=== PATIENT | female | born 1990 | race Caucasian/White ===

== ENCOUNTER 2017-01-19 01:38 | Emergency (ER) | payer BC ==
--- NOTE | ~2017-01-19 | ER ---
PATIENT'S NAME: SADIA ROBISON [facility] AGE: 26 Y [address] ROOM: [place] [address] LOCATION: [facility] ADMIT DATE: 01/19/2017 ER/Outpatient Report DISCHARGE DATE: 01/19/2017 FAMILY PHYSICIAN: , Unknown ATTENDING PHYSICIAN: Nathan Moreno Time of Arrival: 0136 hours. Time of Evaluation: 0147 hours. CHIEF COMPLAINT: Constipation. HISTORY OF PRESENT ILLNESS: The patient is a 26-year-old female, who presents to the emergency department today with a chief complaint of constipation. She reports she had diarrhea on Sunday. She took multiple doses of diarrheal medicine at that time. She has not had a bowel movement since Sunday. She denies any fevers or chills. No urinary frequency, urgency, or painful urination. No nausea or vomiting. She reports gas pain, feels bloated, crampy type pain. Maximum was 10/10 in severity. It is mild in severity currently. PAST MEDICAL HISTORY: 1. 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 2. Anxiety. 3. Depression. 4. Bipolar. 5. Hearing loss. PAST SURGICAL HISTORY: Fistula, , PDA closure, D and C, elective . SOCIAL HISTORY: The patient lives in [place]. Smokes 8 cigarettes per day for 3 years. Denies any alcohol or illicit drug use. ALLERGIES: TO PENICILLIN, AMOXICILLIN, HYDROCODONE, AND LEXAPRO. MEDICATIONS: Please see list. PRIMARY CARE DOCTOR: PATIENT'S NAME: SADIA ROBISON [facility] AGE: 26 Y [address] ROOM: [place], [place] [address] LOCATION: [facility] ADMIT DATE: 01/19/2017 ER/Outpatient Report DISCHARGE DATE: 01/19/2017 FAMILY PHYSICIAN: Physician, Unknown ATTENDING PHYSICIAN: Nathan Moreno None. REVIEW OF SYSTEMS: All systems are reviewed by myself and negative with the exception of those discussed in the HPI and past medical history. PHYSICAL EXAMINATION: VITAL SIGNS: Weight 61.4 kg, blood pressure 133/87, pulse 66, respiratory rate 16, temperature 98.7, oxygen saturation 100% on room air. GENERAL: The patient is a 26-year-old female, appears stated age, in no acute distress. HEENT: Head is normocephalic and atraumatic. Pupils are equal, round, and reactive to light and accommodation. Extraocular motions are intact. Nares are patent bilaterally. TMs are clear. Oropharynx is clear. NECK: Supple. There is no nuchal rigidity. CARDIOVASCULAR: Regular rate and rhythm. No murmurs, rubs, or gallops. LUNGS: Clear to auscultation bilaterally. No wheezes, rales, or rhonchi. ABDOMEN: Soft, nontender, and nondistended. No rebound, rigidity, or guarding. Positive bowel sounds. MUSCULOSKELETAL: The patient moves all 4 extremities. 5/5 muscle strength. SKIN: Warm and dry. There are no rashes or lesions noted. LABS AND X-RAYS: None. IMPRESSION: 1. Constipation. 2. Initial visit. EMERGENCY DEPARTMENT COURSE: The patient was brought back to the examination room. Seen and evaluated by myself. History and physical performed as described above. The patient's abdominal exam is unremarkable. She has nonsurgical abdominal exam at this time. She does have good bowel sounds. It sounds like she just has constipation. She certainly does have a nonsurgical abdominal exam at this time. I have discussed with her the medications that she is taking. We will write her for GoLYTELY. She is to take this until she has a loose stool. I have recommended using an enema as well as a stool softener as well. I have discussed following up with the primary care doctor. We have given her a business card for [facility]. I have asked she follows up with Dr. Epps with her dialysis as scheduled. I have discussed return-to- care instructions, including worsening abdominal pain, or any other concerns to return to the emergency department as soon as possible. The patient is agreeable without further questions at this time. PATIENT'S NAME: SADIA ROBISON [facility] AGE: 26 Y [address] ROOM: [place], [place] [address] LOCATION: ED ADMIT DATE: 01/19/2017 ER/Outpatient Report DISCHARGE DATE: 01/19/2017 FAMILY PHYSICIAN: Physician, Unknown ATTENDING PHYSICIAN: Nathan Moreno DISPOSITION: The patient discharged home in good condition. DO GINA MILLIGAN/conchita /[id number] d: 01/19/17 0304 t: 01/22/17 0604, OUTPATIENT REPORT
[~2017-01-19 01:38] MED LIST: BISMUTH262 M1 PO; HEPARIN5000 UNIT/ DIALYSIS; ISORDIL10 MG PO; LOPERAMIDE2 M1 PO; MELATONIN5 MG PO; MIDOL CAPLET1 EAC1 PO; PROAIR HFA8.5 GM INH; PROTONIX40 MG PO; ROCALTROL0.25 MCG PO; TUMS REGULAR ST1 TAB PO; [UNRECOGNIZED DRUG - OTHER] PO
== END 2017-01-19 02:06 | disposition disaster alternative care site (69) ==
LOC: GMED 01:38
DX: K59.00 Constipation, unspecified (principal); F31.9 Bipolar disorder, unspecified; F41.9 Anxiety disorder, unspecified; N18.6 End stage renal disease; F17.210 Nicotine dependence, cigarettes, uncomplicated; Z99.2 Dependence on renal dialysis; Z88.0 Allergy status to penicillin; Z88.1 Allergy status to other antibiotic agents; Z88.5 Allergy status to narcotic agent; Z88.8 Allergy status to other drugs, medicaments and biological substances; Z79.899 Other long term (current) drug therapy

== ENCOUNTER 2017-01-19 16:59 | Emergency (ER) | payer BC ==
--- NOTE | ~2017-01-19 | ER ---
PATIENT'S NAME: SADIA ROBISON [facility] AGE: 26 Y [address] ROOM: [place] [address] LOCATION: [facility] ADMIT DATE: 01/19/2017 ER/Outpatient Report DISCHARGE DATE: 01/19/2017 FAMILY PHYSICIAN: PHYSICIAN, NO ATTENDING PHYSICIAN: Ignacio Lange HISTORY OF PRESENT ILLNESS: This patient is a 26-year-old female who comes in with diarrhea and right lower abdominal pain. No nausea or vomiting. She was having diarrhea earlier this week and then took an antidiarrheal, then got constipated. Has not had a bowel movement for three or four days. Was given magnesium citrate earlier this morning and then developed diarrhea, so she came in with the diarrhea and some right lower quadrant abdominal pain. Initially, saw Dr. Lange. See Dr. Lange's dictation in regard to the chief complaint, history of the present illness, past medical history, physical exam, laboratory study results. Dr. Lange transferred the patient's care over to me at shift change and asked me to follow up with the remaining lab study results and CT scan of the abdomen and pelvis results, final diagnosis, and treatment plan. The patient does have end-stage renal failure, on hemodialysis. She has not done dialysis on Sunday or Sunday of this week. So, she has missed twice. She has a history of anxiety, depression, bipolar disorder. LABORATORY DATA: CMS was normal except for an elevated BUN of 51, elevated creatinine of 6.1, low GFR of 8. CRP was 0.60. Beta HCG quantitative was normal at 1.0. Urine showed 0 to 2 whites, 50 to 100 reds, 10 to 20 epithelial cells, few bacteria per high-powered field, negative nitrites. Clot tube was drawn. White count was 7000, 65 segs, 25 lymphs, 6 monos, 3 eos, 1 baso. Hemoglobin is 13.2 with hematocrit 40.3, platelet count 130,000. PTT was 29, protime is 9.9 with an INR 1.0. Lactate was 1.5. CT scan of the abdomen and pelvis with IV contrast shows two right hemorrhagic ovarian cysts, one measuring 5 cm and one measuring 3 cm. There is a small amount of free fluid in the pelvis, physiologic. No other abnormalities were noted on CT scan. CT scan was read by Radiology, see dictated transcribed report. IMPRESSION: 1. Diarrhea, most likely secondary to magnesium citrate that she took at 0230 hours this morning. 2. Right lower abdominal pain, etiology uncertain, but may be due to the two right ovarian hemorrhagic cysts. 3. End-stage renal failure, on hemodialysis on Sunday, Sunday, and Sunday. 4. Thrombocytopenia. 5. Microscopic hematuria, etiology uncertain. PATIENT'S NAME: SADIA ROBISON [facility] AGE: 26 Y [address] ROOM: [place] [address] LOCATION: [facility] ADMIT DATE: 01/19/2017 ER/Outpatient Report DISCHARGE DATE: 01/19/2017 FAMILY PHYSICIAN: , NO ATTENDING PHYSICIAN: Ignacio Lange PLAN: The patient dismissed home. Observation. Activity as tolerated. Continue present home medications and care. Good hydration. Diet as tolerated. Proceed with dialysis on Sunday as scheduled. Follow up with personal physician in 4 or 5 days or sooner if needed. Discussion ensued with the patient concerning my findings and recommendations, she understands. MD KALE COLON/modl /[id number] d: 01/19/17 2328 t: 01/20/17 0013, OUTPATIENT REPORT
--- NOTE | ~2017-01-19 | ER ---
PATIENT'S NAME: SADIA ROBISON [facility] AGE: 26 Y [address] ROOM: [place] [address] LOCATION: ED ADMIT DATE: 01/19/2017 ER/Outpatient Report DISCHARGE DATE: 01/19/2017 FAMILY PHYSICIAN: MATT WETZEL ATTENDING PHYSICIAN: Ignacio Lange CHIEF COMPLAINT: Abdominal pain and diarrhea. HISTORY OF PRESENT ILLNESS: The patient presents from home for evaluation of diarrhea and abdominal pain. She was here early this morning for same. She is a dialysis patient secondary to Alport syndrome. She does make urine and reports that she has been urinating some today as well. She did take the MiraLAX as prescribed early this morning and has had multiple bowel movements since. She states that she had been having diarrhea last weekend and at dialysis on Sunday was given 2 Imodium and since then she has not had any bowel movements until this afternoon. She states that her abdominal discomfort is worse today. She denies any other issues. No fevers, chills, dysuria, unusual vaginal discharge, or other concerns. She does report that she has had a tubal ligation. No other acute issues at this time. PAST MEDICAL HISTORY: Documented on the record and reviewed by me. SOCIAL HISTORY: Documented on the record and reviewed by me. MEDICATIONS: Documented on the record and reviewed by me. ALLERGIES: DOCUMENTED ON THE RECORD AND REVIEWED BY ME. REVIEW OF SYSTEMS: All systems were reviewed and negative except as noted in the HPI. PHYSICAL EXAMINATION: VITAL SIGNS: Blood pressure 153/89, pulse 75, respiratory rate is 16, temperature 97.8, SpO2 is 100% on room air. Pain is rated at 4/10. GENERAL: An age appropriate female, in no obvious pain or distress. Resting on the exam table. Playing on her phone. NEUROLOGIC: The patient is awake and alert. She is interactive and appropriate for age. No focal deficits or asymmetry appreciated on exam. HEENT: Normocephalic, atraumatic. The eyes are PERRL. The oropharynx is PATIENT'S NAME: SADIA ROBISON [facility] AGE: 26 Y [address] ROOM: [place] [address] LOCATION: [facility] ADMIT DATE: 01/19/2017 ER/Outpatient Report DISCHARGE DATE: 01/19/2017 FAMILY PHYSICIAN: PHYSICIAN, NO ATTENDING PHYSICIAN: Ignacio Lange. No erythema or exudates seen. NECK: Supple. Trachea is midline. HEART: Regular rate and rhythm with no murmurs. LUNGS: Clear to auscultation bilateral with no rhonchi, wheezes, or rales. ABDOMEN: Soft, but there was rebound tenderness most prominent in the right lower quadrant with tenderness at the McBurney's point. Negative Rovsing sign. Negative obturator and negative psoas sign. The abdominal exam did not have any appreciable masses. BACK: Nontender to palpation throughout. There is no CVA tenderness. EXTREMITIES: Warm and well perfused without appreciated edema. SKIN: Warm, dry, and intact. LABORATORY DATA AND X-RAYS: Urinalysis; 25 leukocytes, 100 protein, 50 glucose, 250 blood, with a micro of 0 to 2 wbc's, 50 to 100 rbc's, 10 to 20 epithelials, and few bacteria. CBC of WBC 7.0, hemoglobin 13.2, platelets of 130. INR is 1.0. Serum lactate is 1.5. CMS as well as a serum are pending. IMPRESSION: 1. Abdominal pain. 2. Diarrhea. 3. Dialysis dependent. EMERGENCY DEPARTMENT COURSE: The patient was evaluated as above. I was concerned about appendicitis in this patient as it appeared after review of the notes from earlier ER visit that her abdominal exam had indeed worsened. For that reason, I believe she warrants a CT scan with contrast. We explained the risks and benefits of that to the patient. I needed to hand this patient off due to shift change restrictions to Dr. Mace at 1800 hours. He will follow up the labs to ensure that the patient is not as ectopic is also on the differential. At that time, appropriate interventions will be undertaken. She did not require any pain medication while I was taking care of her in the emergency department. Please see Dr. Mace's dictation for completion of encounter. MD JOMAR MAYER/conchita /[id number] d: 01/20/17 0629 t: 01/22/17 1044, OUTPATIENT REPORT
[2017-01-19 17:41] LABS: BASOPHIL # 0.1 K/uL (0.0-0.2); EOSINOPHIL # 0.2 K/uL (0.0-0.5); EOSINOPHIL % 3.2 %; HEMATOCRIT 40.3 % (33.0-46.0); HEMOGLOBIN 13.2 g/dL (11.0-15.0); IMMATURE GRANULOCYTE % 0.1 %; LYMPHOCYTE # 1.7 K/uL (0.8-4.0); LYMPHOCYTE % 24.7 %; MCH 32.5 pg (27.0-34.0); MCHC 32.8 gm/dL (32.0-36.5); MCV 99.3 fl (83.0-98.0); MONOCYTE # 0.4 K/uL (0.0-1.0); MONOCYTE % 6.2 %; MPV 11.4 fl (9.4-12.4); NEUTROPHIL # (ANC) 4.5 K/uL (1.8-7.8); NEUTROPHIL % 64.8 %; NRBC % 0 /100WBC (0-0.00); PLATELET COUNT 130 K/uL (150-450); RBC 4.06 M/uL (3.50-5.00); RDW-CV 12.4 % (11.9-14.6)
[2017-01-19 17:49] LABS: PROTIME 9.9 SECONDS (9.6-11.1); PTT 29 SECONDS (25-32)
[2017-01-19 17:51] LABS: BILIRUBIN URINE NEGATIVE (NEGATIVE); BLOOD URINE 250 /UL (NEGATIVE); COLOR URINE YELLOW (YELLOW); GLUCOSE URINE 50 mg/dL (NEGATIVE); KETONE URINE NEGATIVE (NEGATIVE); LEUKOCYTES URINE 25 /UL (NEGATIVE); NITRITE URINE NEGATIVE (NEGATIVE); PROTEIN URINE 100 mg/dL (NEGATIVE); TURBIDITY URINE CLEAR (CLEAR); UROBILINOGEN URINE NORMAL (NORMAL)
[2017-01-19 18:00] LABS: BACTERIA URINE FEW (NEGATIVE); RBC URINE 50-100 #/HPF (NEGATIVE); WBC URINE 0-2 #/HPF (NEGATIVE)
[2017-01-19 18:02] LABS: ALBUMIN 4.1 gm/dL (3.5-5.0); ANION GAP 14.7 (10.0-19.0); CALCIUM 9.1 mg/dL (8.5-10.5); CREATININE 6.1 mg/dL (0.5-1.1); POTASSIUM 4.7 mMol/L (3.7-5.1); TOTAL BILIRUBIN 0.2 mg/dL (0.0-1.5); TOTAL PROTEIN 8.4 g/dL (6.0-8.4)
== END 2017-01-19 19:34 | disposition disaster alternative care site (69) ==
LOC: GMED 16:59
PROVIDERS: Emergency Medicine
DX: R19.7 Diarrhea, unspecified (principal); R10.31 Right lower quadrant pain; R31.29 Other microscopic hematuria; D69.6 Thrombocytopenia, unspecified; N18.6 End stage renal disease; F31.9 Bipolar disorder, unspecified; F41.9 Anxiety disorder, unspecified; Z99.2 Dependence on renal dialysis; Z88.0 Allergy status to penicillin; Z88.1 Allergy status to other antibiotic agents; Z88.5 Allergy status to narcotic agent; Z91.040 Latex allergy status; Z79.899 Other long term (current) drug therapy
CPT/HCPCS: Q9967

== ENCOUNTER 2017-01-21 14:16 | Emergency (ER) | payer BC ==
--- NOTE | ~2017-01-21 | ER ---
PATIENT'S NAME: SADIA ROBISON [facility] AGE: 26 Y [address] ROOM: [place] [address] LOCATION: ED ADMIT DATE: 01/21/2017 ER/Outpatient Report DISCHARGE DATE: 01/21/2017 FAMILY PHYSICIAN: PHYSICIAN, NO ATTENDING PHYSICIAN: Ignacio Lange Time Seen: Seen at 1430 hours. CHIEF COMPLAINT: Sore throat. HISTORY OF PRESENT ILLNESS: The patient is a 26-year-old, dialysis patient presents with a sore throat. It started today. She denies any fever, chills, postnasal drainage. ALLERGIES: LEXAPRO, PENICILLIN, AND HYDROCODONE. CURRENT MEDICATIONS: See copied list which was reviewed. MEDICAL HISTORY: Includes chronic kidney disease requiring dialysis. PAST SURGICAL HISTORY: Surgeries include port. She has had a previous graft, tubal ligation. SOCIAL HISTORY: Smoker. A 3rd of a pack a day. REVIEW OF SYSTEMS: GENERAL: Today, no fevers or chills. HEAD/EENT: Sore throat. No postnasal drainage. RESPIRATORY: No cough or wheezing. OBJECTIVE FINDINGS: VITAL SIGNS: Temperature is 97.8, her respiratory rate 16, pulse 74, O2 saturation 98%. GENERAL APPEARANCE: Nontoxic-appearing. HEENT: TMs appeared normal. Throat: Tonsils appear slightly large, slightly red. There is no exudate. NECK: She had slightly enlarged anterior nodes, but did not appear tender. SKIN: No presence of any erythematous rash. LABORATORY DATA: PATIENT'S NAME: SADIA ROBISON [facility] AGE: 26 Y [address] ROOM: [place] [address] LOCATION: ED ADMIT DATE: 01/21/2017 ER/Outpatient Report DISCHARGE DATE: 01/21/2017 FAMILY PHYSICIAN: PHYSICIAN, NO ATTENDING PHYSICIAN: Ignacio Lange Rapid strep screen was negative. ASSESSMENT: Pharyngitis, probable viral. PLAN: Recommend the use of saline gargles, [id number] lozenges or spray. Follow up if she develops a fever, or concerns. NICOLÁS ELENA FOR MD EVE MAYERJ/modl /[id number] d: 01/21/17 2259 t: 02/13/17 0603, OUTPATIENT REPORT
== END 2017-01-21 15:10 | disposition disaster alternative care site (69) ==
LOC: GMED 14:16
DX: J02.9 Acute pharyngitis, unspecified (principal); N18.6 End stage renal disease; F17.210 Nicotine dependence, cigarettes, uncomplicated; Z99.2 Dependence on renal dialysis; Z88.0 Allergy status to penicillin; Z88.8 Allergy status to other drugs, medicaments and biological substances

== ENCOUNTER 2017-02-09 21:01 | Emergency (ER) | payer BC ==
--- NOTE | ~2017-02-09 | ER ---
PATIENT'S NAME: SADIA ROBISON [facility] AGE: 26 Y [address] ROOM: [place] [address] LOCATION: [facility] ADMIT DATE: 02/09/2017 ER/Outpatient Report DISCHARGE DATE: 02/09/2017 FAMILY PHYSICIAN: Physician, Unknown ATTENDING PHYSICIAN: Ignacio Lange Time of Arrival: 2014 hours. Time of Exam: 2015 hours. CHIEF COMPLAINT: Chest pain. HISTORY OF PRESENT ILLNESS: The patient states having right-sided chest pain. She states she has had a cough for couple of days and has had this right breast and right chest pain off and on for a while, seemed to get worse after she did dialysis. Today's dialysis got over at 8 o'clock. She was at [facility] and told them about the chest pain and they felt as though she needed to come for further evaluation. An ambulance was called. She did arrive per EMS. Upon arrival, she says the pain is primarily in the right lateral breast area. She has had some pain around the right port. Has had a cough and some shortness of breath. Cough was nonproductive. Denies feeling nauseated. Has not vomited. ALLERGIES: ARE ON THE CHART AND WERE REVIEWED BY ME. MEDICATIONS: Are on the chart and were reviewed by me. PAST MEDICAL HISTORY: Includes Alport, renal disease, IgA nephropathy, and migraine headaches. PAST SURGERIES: She has had multiple hemodialysis fistulas done and 2 C sections. SOCIAL HISTORY: She lives with her and children. Smokes 1-2 cigarettes per day. Denies use of drugs and alcohol. REVIEW OF SYSTEMS: Negative other than those mentioned in the HPI. PHYSICAL EXAMINATION: VITAL SIGNS: She weighs 60.9 kg, blood pressure is 143/58, pulse of 86, PATIENT'S NAME: SADIA ROBISON [facility] AGE: 26 Y [address] ROOM: [place] [address] LOCATION: [facility] ADMIT DATE: 02/09/2017 ER/Outpatient Report DISCHARGE DATE: 02/09/2017 FAMILY PHYSICIAN: Physician, Unknown ATTENDING PHYSICIAN: Ignacio Lange respirations 20, temperature of 98.1, and O2 saturation 100% on room air. [place] Coma Scale is 15. GENERAL: She is awake, alert, and oriented x4. SKIN: [place], warm, and dry. LUNGS: Respirations are even and nonlabored. Lung sounds are clear throughout. HEART: Regular rate and rhythm. No deformity of the right breast is noted. Right chest port is non-reddened, no swelling around it noted. ABDOMEN: Soft and nondistended. Bowel sounds are present. She is moving all extremities strongly and equally. DIAGNOSTIC DATA: EKG was completed shows sinus rhythm. CBC is within normal limits. Chem panel is within normal limits. GFR is 31 which is better than what it has been in the past month. Cardiac enzymes are negative. Chest x-ray shows no acute process. The patient was reviewed with Dr. Lange. IMPRESSION: Noncardiac chest pain, right breast pain. PLAN: Home, rest, fluids. Continue her current medications and dialysis schedule. If symptoms persist or worsen, she should follow up with her primary provider or return to the ER within the next 2-3 days. She verbalized understanding. DILCIA KO APRN FOR MD KG MAYER/conchita /[id number] d: 02/10/174 t: 02/21/17 08, OUTPATIENT REPORT
[~2017-02-09 21:01] MED LIST changes: -SENSIPAR 30 MG30 MG PO; -TYLENOL EXTRA500 MG PO
[2017-02-09 21:26] LABS: BASOPHIL % 0.8 %; EOSINOPHIL # 0.1 K/uL (0.0-0.5); EOSINOPHIL % 2.7 %; HEMATOCRIT 33.9 % (33.0-46.0); HEMOGLOBIN 11.4 g/dL (11.0-15.0); LYMPHOCYTE # 2.1 K/uL (0.8-4.0); LYMPHOCYTE % 44.6 %; MCH 31.9 pg (27.0-34.0); MCHC 33.6 gm/dL (32.0-36.5); MONOCYTE # 0.5 K/uL (0.0-1.0); MONOCYTE % 10.2 %; MPV 10.9 fl (9.4-12.4); NEUTROPHIL % 41.7 %; NRBC % 0 /100WBC (0-0.00); PLATELET COUNT 131 K/uL (150-450); RBC 3.57 M/uL (3.50-5.00); RDW-CV 11.9 % (11.9-14.6); WBC 4.8 K/uL (4.0-11.0)
[2017-02-09 21:43] LABS: ALBUMIN 3.5 gm/dL (3.5-5.0); ALK PHOS 91 IU/L (33-138); ALT 19 IU/L (12-78); ANION GAP 11.6 (10.0-19.0); AST 18 IU/L (10-40); BLOOD UREA NITROGEN 5 mg/dL (6-24); CALCIUM 8.2 mg/dL (8.5-10.5); CHLORIDE 103 mMol/L (96-110); CO2 33 mMol/L (22-32); CPK 80 IU/L (21-215); CREATININE 1.9 mg/dL (0.5-1.1); POTASSIUM 3.6 mMol/L (3.7-5.1); SODIUM 144 mMol/L (135-145)
[2017-02-09 21:46] LABS: ESTIMATED GFR (MDRD EQUATION) 31; TOTAL BILIRUBIN 0.3 mg/dL (0.0-1.5)
[2017-02-09 22:16] LABS: PROTIME 10.8 SECONDS (9.6-11.1); PTT 35 SECONDS (25-32)
== END 2017-02-09 22:10 | disposition disaster alternative care site (69) ==
LOC: GMED 21:01
PROVIDERS: Emergency Medicine
DX: R07.89 Other chest pain (principal); N64.4 Mastodynia; F17.210 Nicotine dependence, cigarettes, uncomplicated; N18.6 End stage renal disease; Z79.899 Other long term (current) drug therapy

== ENCOUNTER → 2017-02-09 | Outpatient (CLI) | payer BC ==
[~2017-02-09] MED LIST changes: +SENSIPAR 30 MG30 MG PO; +TYLENOL EXTRA500 MG PO
== END | disposition disaster alternative care site (69) ==
LOC: GAMB 20:37
DX: R07.89 Other chest pain (principal); N18.4 Chronic kidney disease, stage 4 (severe); Z99.2 Dependence on renal dialysis; Z88.0 Allergy status to penicillin; Z88.6 Allergy status to analgesic agent
CPT/HCPCS: A0425; A0427

== ENCOUNTER 2017-05-10 20:50 | Observation (INO) | payer BC ==
[~2017-05-10] VITALS: Ht 149.9 cm; Wt 57.7 kg
--- NOTE | ~2017-05-10 | DS ---
PATIENT'S NAME: SADIA ROBISON [facility] AGE: 26 Y [address] ROOM: [place] [id number] [place] [facility] [place] DATE: 05/10/2017 Discharge Summary DISCHARGE DATE: 05/11/2017 FAMILY PHYSICIAN: PHYSICIAN, NO ATTENDING PHYSICIAN: Jose Feliz V ADMITTING DIAGNOSIS: End-stage renal disease. DISCHARGE DIAGNOSIS: End-stage renal disease. SECONDARY DIAGNOSES: 1. Alport syndrome. 2. Migraine headache. 3. Tobacco use. PROCEDURE: Hemodialysis on 05/11/2017. CONSULTATION: Nephrology. HISTORY OF PRESENT ILLNESS: The patient is a 26-year-old female with Alport syndrome, end-stage renal disease, on hemodialysis through left tunnel line. The patient had missed 3 dialysis session due to social reasons. The patient lives in [place] and does not have transportation. HOSPITAL COURSE: The patient was admitted as a transfer from outside hospital. The patient was started on hemodialysis. She had one session of hemodialysis today. The patient was seen by Dr. Epps during her stay. The patient lives at [place] and has transportation issues to have dialysis at [place]. Social Work was consulted. The patient was told to follow up with the patient assist so that she can be evaluated for Medicaid. The patient reports that she will try to come to [place] for dialysis with her . 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 The patient also reports of her typical migraine headache and was given Tylenol with resolution of symptoms. A CT head was done on admission because of migraine headache and CT head was unremarkable. CONDITION: Stable. DISPOSITION: Home. DISCHARGE MEDICATIONS: Please see MAR. DISCHARGE INSTRUCTION: To have hemodialysis Sunday, Sunday, Sunday, and to PATIENT'S NAME: SADIA ROBISON [facility] AGE: 26 Y [address] ROOM: [address] [address] LOCATION: [facility] [place] ADMIT DATE: 05/10/2017 Discharge Summary DISCHARGE DATE: 05/11/2017 FAMILY PHYSICIAN: PHYSICIAN, NO ATTENDING PHYSICIAN: Jose Feliz V follow up with Dr. Epps. FOLLOW UP: With Dr. Epps and primary care physician and also with hemodialysis Sunday, Sunday, Sunday. PHYSICAL EXAMINATION: VITAL SIGNS: Temperature 98.2, blood pressure 138/75, pulse of 66, and respiratory rate of 16. GENERAL APPEARANCE: The patient alert and awake in no acute distress. CHEST: Clear to auscultation bilaterally. HEAD: Normocephalic, atraumatic. HEART: Regular rate and rhythm. No murmurs, rubs, or gallops. ABDOMEN: Soft, nontender, and nondistended. EXTREMITIES: No edema. SKIN: Warm to touch. CREDIT COLLECTIONS MANAGER: Alert and oriented x3. Motor and sensory grossly intact. Greater than 30 minutes was spent on discharge planning. MD OSEAS MARSHALL/conchita /[id number] d: 05/12/17 0536 t: 05/12/17 1749, DISCHARGE SUMMARY
--- NOTE | ~2017-05-10 | HP ---
PATIENT'S NAME: SADIA ROBISON [facility] AGE: 26 Y [address] ROOM: [place] [address] [place] [facility] [place] DATE: 05/10/2017 History & Physical DISCHARGE DATE: FAMILY PHYSICIAN: PHYSICIAN, NO ATTENDING PHYSICIAN: JARROD MAO V DATE OF SERVICE: CHIEF COMPLAINT: Missed dialysis. HISTORY OF PRESENT ILLNESS: The patient is a 26-year-old female with Alport's syndrome, end-stage renal disease, on hemodialysis through a left tunneled line. The patient has missed last 3 dialysis sessions due to social reasons. She was told to go into the ER today to get dialyzed. The patient does not report any shortness of breath, chest pain, nausea, vomiting, or shortness of breath associated with last week when she did not have dialysis. She does endorse constant floaters in her central vision, which have been present for over a month. Her affect is also quite strange though preserved cognition and mood. REVIEW OF SYSTEMS: All systems have been reviewed and are negative aside from pertinent positives mentioned above. PAST MEDICAL HISTORY: 1. Alport's syndrome. 2. End-stage renal disease. 3. 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 SOCIAL HISTORY: Significant for ongoing tobacco use. FAMILY HISTORY: Reviewed and is noncontributory. CURRENT MEDICATIONS: 1. Acetaminophen. 2. Sensipar. PHYSICAL EXAMINATION: VITAL SIGNS: Blood pressure 154/79, saturating 100% on room air, respirations 16, pulse 57, and temperature 97.6. PATIENT'S NAME: SADIA ROBISON [facility] AGE: 26 Y [address] ROOM: [place] [address] [place] [facility] [place]: 05/10/2017 History & Physical DISCHARGE DATE: FAMILY PHYSICIAN: PHYSICIAN, NO ATTENDING PHYSICIAN: JARROD MAO V GENERAL: Well-developed, well-nourished elderly female, in no acute distress. NEUROLOGIC: Exam shows no focal deficits. EYES: Exam shows pupils are equal and reactive to light. LYMPHATICS: Exam shows no cervical lymphadenopathy. ENDOCRINE: Exam shows no thyromegaly. LUNGS: Clear to auscultation. HEART: Rate is regular. GI: Abdomen is soft, nontender, nondistended. : No costovertebral angle tenderness. VASCULAR: A 2+ pedal pulses. No edema. LABORATORY DATA: Labs in the ER were significant for BUN of 49, creatinine of 6.2, and a bicarb of 18 with a venous pH 7.23. ASSESSMENT AND PLAN: This is a 26-year-old female with: 1. End-stage renal disease. The patient will be dialyzed tomorrow and Dr. Epps is aware of the case. 2. Floaters. We will get a nonurgent CAT scan of her head to rule out any potential central source for her floaters. The patient may need an ophthalmological evaluation later on. 3. Tobaccoism. I have provided 10 minutes of tobacco cessation counseling to this patient and encouraged her to quit as soon as possible. 4. Additional management will depend on clinical course. Time dedicated to this patient encounter is 25 minutes. MD BERHANE CANTU/conchita /[id number] D: 355 T: 412 HISTORY & PHYSICAL
--- NOTE | ~2017-05-10 | ER ---
PATIENT'S NAME: SADIA ROBISON [facility] AGE: 26 Y [address] ROOM: [place] [address] LOCATION: [facility] – [place] ADMIT DATE: 05/10/2017 ER/Outpatient Report DISCHARGE DATE: FAMILY PHYSICIAN: PHYSICIAN, NO ATTENDING PHYSICIAN: JARROD MAO V Admission date and time documented on the medical record. I saw the patient at 2105 hours. CHIEF COMPLAINT: End-stage renal failure, on hemodialysis. She has not had dialysis for 7 days. HISTORY OF PRESENT ILLNESS: This patient is a 26-year-old female with end-stage renal failure, on hemodialysis. She has Alport syndrome and IgA nephropathy. She gets hemodialysis Sunday, , and Saturdays. Her last hemodialysis was 7 days ago, last . She has been unable to have transport for hemodialysis on , this past Sunday, and this past Sunday. She presents to the emergency room desiring hemodialysis. She does have a headache. No eyes, ears, nose, throat, neck, or spine pain. No chest pain or shortness of breath. No respiratory distress or problems breathing. No abdominal pain, nausea, vomiting, or diarrhea. She does make urine, that has not changed. She does not believe that she has had excessive weight gain or fluid overload. No fall or trauma. No recent colds, coughs, flus, fever, chills, or sweats. No joint or muscle swelling, redness, or pain. No skin eruptions or rash. Does have IgA nephropathy and Alport syndrome. No neuro changes. She does have some psych issues including bipolar disorder with anxiety, depression, and some hearing loss. No endocrine problems. HOME MEDICATIONS: See attached medication list. ALLERGIES: PENICILLIN, HYDROCODONE, LATEX, AND LEXAPRO. SOCIAL HISTORY: The patient smokes about a quarter to half a pack of cigarettes a day. Nondrinker. SIGNIFICANT PAST MEDICAL HISTORY: Headaches; tobacco abuse; Alport syndrome; IgA nephropathy; bipolar disorder with anxiety and depression; chronic kidney disease, on hemodialysis; hard of hearing; and gastroesophageal reflux. PATIENT'S NAME: SADIA ROBISON [facility] AGE: 26 Y [address] ROOM: [place] [address] LOCATION: [facility] [place] ADMIT DATE: 05/10/2017 ER/Outpatient Report DISCHARGE DATE: FAMILY PHYSICIAN: PHYSICIAN, NO ATTENDING PHYSICIAN: JARROD MAO V OPERATIONS: PD catheter placement, fistula placement x2 with both failing, x2, PDA closure, elective , D and C, and renal biopsy. REVIEW OF SYSTEMS: All systems reviewed by me are negative with the exception of those discussed in the history of present illness. PHYSICAL EXAMINATION: VITAL SIGNS: Temperature 98.8, pulse 71, respirations 16, blood pressure 126/84, and O2 saturation on room air is 92%. HEAD: Normocephalic. EYES, EARS, NOSE, THROAT: Clear. Mucous membranes moist. NECK: Negative. SPINE: Negative. LUNGS: Clear. Good air flow. No rales, rhonchi, or wheezes. HEART: Regular. Pulses are palpable. ABDOMEN: Soft. Good bowel tones. EXTREMITIES: Without peripheral edema, cyanosis, or deformity. NEUROVASCULAR: Intact. SKIN: Clear. LABORATORY DATA: Venous pH was 7.23. ProBNP was 789. CMS was normal except for an elevated chloride of , low CO2 content of 18, low calcium of 8, elevated BUN of 49, elevated creatinine of 6.2 with a low GFR of 8. White count is , 58 segs, 30 lymphs, 8 monos, 3 eos, 1 baso. Hemoglobin is 11.8, hematocrit 35.3, platelet count was 159,000. Pro-time was 10.7 and an INR of 1.02. IMPRESSION: 1. End-stage renal failure, on hemodialysis. The patient has not been dialyzed for 7 days. She does not appear to be fluid overloaded. Her creatinine is 6.2 with a GFR of 8. ProBNP was elevated at 789. Venous pH was 7.23. 2. Alport syndrome. 3. IgA nephropathy. 4. Bipolar disorder with anxiety and depression. 5. Tobacco abuse. PLAN: I did discuss this patient with Dr. Epps, home school coordinator. Dr. Epps wanted the patient admitted to observation with hemodialysis tomorrow morning. Did discuss the patient with Dr. Mao, hospitalist, to admit the patient to Med- Surg. Discussion ensued with the patient concerning my findings and PATIENT'S NAME: [facility] AGE: 26 Y [address] ROOM: [address] [address] LOCATION: [facility] [place] ADMIT DATE: 05/10/2017 ER/Outpatient Report DISCHARGE DATE: FAMILY PHYSICIAN: PHYSICIAN, MATT ATTENDING PHYSICIAN: JARROD MAO, she understands. MD KALE COLON/modl /[id number] d: 05/11/17 0409 t: 05/11/17 1818, OUTPATIENT REPORT
--- NOTE | ~2017-05-10 | CON ---
PATIENT'S NAME: SADIA ROBISON [facility] AGE: 26 Y [address] ROOM: [place] [id number] [place] [facility] [place]: 05/10/2017 Consultation DISCHARGE DATE: 05/11/2017 FAMILY PHYSICIAN: PHYSICIAN, NO ATTENDING PHYSICIAN: Jose Feliz V DATE OF CONSULTATION: 05/11/2017 REQUESTING PHYSICIAN: Jose Feliz MD. REASON FOR CONSULTATION: End-stage renal failure patient, need for hemodialysis. HISTORY OF PRESENT ILLNESS: The patient is a 26-year-old white female with end-stage renal failure from Alport syndrome. She is on maintenance hemodialysis via tunneled dialysis catheter. The patient has a lot of social issues and she did not have rides to [facility], and she missed about one week worth of dialysis. She came in to the emergency room yesterday because she is not feeling well. I have been asked to see her because she is due for her dialysis treatment. REVIEW OF SYSTEMS: GENERAL: She denies any fever. She is tired. HEENT: Denies any sore throat or sinus congestion. CARDIOVASCULAR: Denies any chest pain. RESPIRATORY: Denies any shortness of breath, cough, or wheezing. GI: She has poor appetite. : Denies any dysuria. She makes urine. MUSCULOSKELETAL: Denies any joint pain or swelling. SKIN: Denies any rash or pruritus. IMMUNOLOGIC: Denies any allergies or hay fever. ENDOCRINE: Denies any heat or cold intolerance. PSYCHIATRIC: Denies any sadness, crying spells, poor concentration, or panic attack. PAST MEDICAL HISTORY: Alport syndrome, ESRD, noncompliance. PAST SURGICAL HISTORY: Multiple left upper extremity AV fistula and graft placement, tunneled dialysis catheter placement. SOCIAL HISTORY: No history of alcohol. She lives at home with her . Continues to use PATIENT'S NAME: SADIA ROBISON [facility] AGE: 26 Y [address] ROOM: [place] [id number] [place] [facility] [place]: 05/10/2017 Consultation DISCHARGE DATE: 05/11/2017 FAMILY PHYSICIAN: PHYSICIAN, NO ATTENDING PHYSICIAN: Jose Feliz V tobacco. FAMILY HISTORY: Positive for Alport syndrome. ALLERGIES: ALLERGIC TO PENICILLIN, HYDROCODONE, OXYCODONE, AMOXICILLIN, LATEX, AND CITALOPRAM. PRESENT MEDICATIONS: Acetaminophen and Sensipar. PHYSICAL EXAMINATION: GENERAL: This is a 26-year-old white female, lying in the dialysis chair, not in acute distress. VITAL SIGNS: Temperature 97.6, pulse is 72, systolic blood pressure is 136 and diastolic 89. HEENT: Normocephalic. Pupils are round and equal. Normal eyelids and pale conjunctivae. Oral cavity clear. Moist mucosa. NECK: Trachea is central. No thyromegaly. No bruit. CARDIAC: Garza sounds are audible in all the areas without any gallop or murmur. There is no pericardial rub. Pulses regular. LUNGS: Bilaterally clear to auscultate anteriorly. No intercostal retraction. ABDOMEN: Soft and nontender. Cannot palpate any liver or spleen. EXTREMITIES: No clubbing or cyanosis. LABORATORY DATA: Glucose 75, BUN 49, creatinine 6.2, sodium 142, potassium 4.8, chloride 114, bicarbonate 18, calcium 8.0, albumin 3.6, hemoglobin 11.8, and hematocrit 35.3. ASSESSMENT: 1. End-stage renal failure. 2. Noncompliance with the dialysis treatment. 3. Alport syndrome. PLAN: I will obtain her outpatient dialysis record and plan for dialyzing the patient. We will discuss with licensed social worker so that we can try to help her with her home situation and arranging transportation for dialysis. I would like to thank Dr. Feliz for allowing me to participate in this patient's care. PATIENT'S NAME: SADIA ROBISON [facility] AGE: 26 Y [address] ROOM: [address] [address] [place] [facility] [place]: 05/10/2017 Consultation DISCHARGE DATE: 05/11/2017 FAMILY PHYSICIAN: PHYSICIAN, NO ATTENDING PHYSICIAN: Jose Feliz V M MD SUSAN OCONNOR/conchita /[id number] d: 05/11/17 1915 t: 05/14/17 1608, CONSULTATION REPORT
[2017-05-10 21:26] LABS: BASOPHIL # 0.1 K/uL (0.0-0.2); BASOPHIL % 0.9 %; EOSINOPHIL # 0.1 K/uL (0.0-0.5); EOSINOPHIL % 2.6 %; HEMATOCRIT 35.3 % (33.0-46.0); HEMOGLOBIN 11.8 g/dL (11.0-15.0); IMMATURE GRANULOCYTE % 0.2 %; LYMPHOCYTE # 1.6 K/uL (0.8-4.0); LYMPHOCYTE % 30.1 %; MCH 32.2 pg (27.0-34.0); MCHC 33.4 gm/dL (32.0-36.5); MCV 96.2 fl (83.0-98.0); MONOCYTE # 0.4 K/uL (0.0-1.0); MONOCYTE % 7.9 %; MPV 10.6 fl (9.4-12.4); NEUTROPHIL # (ANC) 3.1 K/uL (1.8-7.8); NEUTROPHIL % 58.3 %; NRBC % 0 /100WBC (0-0.00); RBC 3.67 M/uL (3.50-5.00); RDW-CV 12.4 % (11.9-14.6); WBC 5.3 K/uL (4.0-11.0)
[2017-05-10 21:34] LABS: INR - (THERAPEUTIC) 1.02 (0.92-1.07); PLATELET COUNT 159 K/uL (150-450); PROTIME 10.7 SECONDS (9.8-11.4)
[2017-05-10 21:46] LABS: ALBUMIN 3.6 gm/dL (3.5-5.0); ANION GAP 14.8 (10.0-19.0); CREATININE 6.2 mg/dL (0.5-1.1); POTASSIUM 4.8 mMol/L (3.7-5.1); TOTAL BILIRUBIN 0.2 mg/dL (0.0-1.5); TOTAL PROTEIN 7.3 g/dL (6.0-8.4)
[2017-05-10] MEDS ORDERED: SENSIPAR 30 MG30 MG PO (23:41)
[2017-05-10] MEDS ORDERED: TYLENOL EXTRA500 MG PO (23:44)
--- NOTE | 2017-05-11 02:52 | NUR ---
ADMIT FOR ESRD AND NEED FOR HEMODIALYSIS. PATIENT UNABLE TO GO TO DIALYSIS FOR A WEEK DUE TO RIDE ISSUE; LAST TIME SHE WENT TO DIALYSIS WAS LAST SUNDAY. HAS TUNNELED DIALYSIS CATHETER TO R) CHEST. SURGICAL HX INCLUDES: KIDNEY BIOPSIES X2, C-SECTIONS X2, PD CATHETER PLACEMENT, 8 CHEST PORTS (DIALYSIS), 2 FISTULA (FAILED), 1 GRAFT L) ARM. MEDICAL HX INCLUDES: ALPORT SYNDROME, MIGRAINES, HEARING LOSS BILAT R/T ALPORT SYNDROME, POOR VISION, "FLOATERS" IN VISION FIELD IN BOTH EYES OVER PAST MONTH, EAR RINGING, HTN, HX PNEUMOTHORAX WITH CHEST TUBE PLACEMENT, JOINT STIFFNESS, GERD, HEARTBURN, C-SECTIONS, BUG BITES, HX BIPOLAR, HX OF MULTIPLE BLOOD TRANSFUSIONS.
--- NOTE | 2017-05-11 04:06 | NUR ---
Significant Event: ADMIT FOR ESRD AND NEED FOR DIALYSIS, HAD NOT HAD DIALYSIS FOR A WEEK. HAS TUNNELED DIALYSIS CATH TO R) CHEST. SCAR FROM PD CATH SITE ON ABDOMEN. IV SALINE LOCK TO R) ANTECUBITAL. OLD FAILED FISTULAS TO L) ARM AND A GRAFT SITE TO L) UPPER ARM; LIMB ALERT TO L) ARM. IS UP AD JOANN. IS VERY [place] AND CURRENTLY HAS RINGING IN BILAT EARS. ALSO HAS "FLOATERS" IN VISION DEUTSCH TO BOTH EYES, PATIENT REPORTS SHE HAS BEEN SEEING THESE FOR ABOUT A MONTH AND DESCRIBES THEM SERRA OF LIGHT. WILL HAVE CT OF HEAD TODAY. DR AWAD TO SEE TODAY WELL. PLAN IS TO HAVE DIALYSIS TODAY. Follow up:
--- NOTE | 2017-05-11 11:38 | NUR ---
0830 Consult received to assist patient with transportation to dialysis. 904 Phone call to EVE at [facility] to discuss if she has tried to help prachi with transportation in the past and if so what plan do they have in place. Had to leave Irene a voicemail to call me. At 1120am I called Urie Delroy again and was told that Irene is working at [place] today. Called Irene at [facility] at [phone]- she was busy so left her a voicemail to call me. Will wait to hear from her.
--- NOTE | 2017-05-11 14:54 | NUR ---
Significant Event: Pt c/o headache throughout shift, got Tylenol ES around 1030 in dialysis with minimal relief. Notified MD but only wants her to have the tylenol. Up ad vale. Got back from dialysis at 1300, only removed 400ml. Possible dc to home later today Follow up:
--- NOTE | 2017-05-11 17:00 | NUR ---
Met with patient and her . Provided them with a list of resources for transportation. List included [employer], [employer], [employer] for transportation waiver, [employer] [facility] for transportation assistance. Patient states that she has already tried [employer] and they are to expensive. She has not tried [employer] or [employer] so I encouraged her to do so. [employer] will be available to her if she has Medicaid.
== END 2017-05-11 19:10 | disposition disaster alternative care site (69) ==
LOC: GMED 20:50 → GMSU 23:02
PROVIDERS: Emergency Medicine; ADMIT Internal Medicine
DX: N18.6 End stage renal disease (principal); Q87.81 Alport syndrome; G43.909 Migraine, unspecified, not intractable, without status migrainosus; Z72.0 Tobacco use; Z79.899 Other long term (current) drug therapy; Z88.0 Allergy status to penicillin; Z88.6 Allergy status to analgesic agent; Z91.040 Latex allergy status
CPT/HCPCS: G0378; J1644